=== PATIENT | male | born 2000 | race Caucasian/White ===

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

== ENCOUNTER 2019-07-30 19:10 | Emergency (ER) | payer MEDICAID ==
[~2019-07-30] VITALS: Ht 182.9 cm; Wt 77.5 kg
[2019-07-30 19:18] VITALS: BP 142/79
[2019-07-30] MEDS ORDERED: DIPH,PERTUSS(ACELL),TET VAC/PF 0.5 ML IM-VACC ONE (20:38)
[2019-07-30] MEDS ORDERED: NEOSPORIN OINT. PKT 1 PACKET ONE (20:45)
[2019-07-30] MEDS ORDERED: DIPH,PERTUSS(ACELL),TET VAC/PF NC IM-VACC ONE (21:00)
== END 2019-07-30 22:02 | disposition home or self-care (01) ==
LOC: ED 20:10
DX: S40.012A Contusion of left shoulder, initial encounter (principal); S50.312A Abrasion of left elbow, initial encounter; W18.39XA Other fall on same level, initial encounter; Y93.51 Activity, roller skating (inline) and skateboarding; Y92.488 Other paved roadways as the place of occurrence of the external cause; Y99.8 Other external cause status
CPT/HCPCS: 90471; 90715; 99284

== ENCOUNTER 2020-01-11 19:53 | Emergency (ER) | payer MEDICAID ==
[~2020-01-11] VITALS: Ht 182.9 cm; Wt 69.2 kg
[2020-01-11 19:55] VITALS: BP 113/75
[2020-01-11] MEDS ORDERED: QUET100T4 PO (20:00)
[2020-01-11] MEDS ORDERED: LAMO100T5 PO (20:00)
[2020-01-11] MEDS ORDERED: IBUPROFEN 200 MG TABLET ONE (21:29)
[2020-01-11] MEDS ORDERED: IBUPROFEN 800 MG TABLET PO ONE (21:30)
--- NOTE | 2020-01-11 22:01 | NUR ---
REPORT TO LY MARLEY.
== END 2020-01-11 22:14 | disposition home or self-care (01) ==
LOC: ED 21:40
DX: S80.02XA Contusion of left knee, initial encounter (principal); S30.811A Abrasion of abdominal wall, initial encounter; S80.211A Abrasion, right knee, initial encounter; F17.200 Nicotine dependence, unspecified, uncomplicated; W19.XXXA Unspecified fall, initial encounter; Y93.89 Activity, other specified; Y92.89 Other specified places as the place of occurrence of the external cause; Y99.8 Other external cause status
CPT/HCPCS: 99282

== ENCOUNTER 2020-03-01 17:23 | Emergency (ER) | payer MEDICAID ==
[~2020-03-01] VITALS: Ht 182.9 cm; Wt 70.0 kg
[~2020-03-01 17:23] MED LIST: LAMO100T5 PO; QUET100T4 PO
[2020-03-01 17:54] VITALS: BP 134/74
[2020-03-01] MEDS ORDERED: CARBAMIDE PEROXIDE EAR DROPS 6.5%, 15ML RIGHT EAR ONE (18:00)
--- NOTE | 2020-03-01 18:27 | NUR ---
PT AMBULATORY TO ROOM 24 W/ C/O R EAR PAIN X 3 DAYS. UPON ASSESSMENT EAR WAX NOTED TO R EAR. PT RESTING ON GURNEY. RUST
[2020-03-01] MEDS ORDERED: CARBAMIDE PEROXIDE EAR DROPS 6.5%, 15ML ONE (18:29)
--- NOTE | 2020-03-01 19:06 | NUR ---
REPORT GIVEN TO AYAKA SWANSON.
--- NOTE | 2020-03-01 19:45 | NUR ---
KEAGAN RN: PT'S EAR IRRIGATED SUCCESSFULLY. NOTIFIED. PT AO X 4. SKIN PWD. RESP EVEN AND UNLABORED. NO ACUTE DISTRESS NTOED AT THIS TIME. PT AND FAMILY AT BEDSIDE AWARE WE ARE WAITING FOR RECHECK BY ERMD. CALL LIGHT WITHIN REACH.
--- NOTE | 2020-03-01 21:51 | NUR ---
PT D/C WITH D/C SUMMARY AND SCRIPTS. ALL QUESTIONS ANSWERED. PT AMBULATES TO REGISTRATION DESK WITH STEADY GAIT FOR D/C HOME AND DENIES ANY OTHER NEEDS PERTAINING TO THIS VISIT.
== END 2020-03-01 21:53 | disposition home or self-care (01) ==
LOC: ED 17:53
DX: H61.21 Impacted cerumen, right ear (principal); H66.91 Otitis media, unspecified, right ear; F17.210 Nicotine dependence, cigarettes, uncomplicated
CPT/HCPCS: 69209; 99406

== ENCOUNTER 2020-04-05 21:49 | Emergency (ER) | payer MEDICAID ==
[~2020-04-05] VITALS: Ht 182.9 cm; Wt 68.7 kg
--- NOTE | 2020-04-05 22:28 | NUR ---
assessment made. chart up for MD to see. states burning sensation with urination. + purulent drainage.
--- NOTE | 2020-04-05 22:45 | NUR ---
urine sent to lab.
[2020-04-05 23:07] LABS: MICROSCOPIC INDICATED
[2020-04-05] MEDS ORDERED: AZITHROMYCIN 500 MG TABLET PO ONE (23:30)
[2020-04-05] MEDS ORDERED: CEFTRIAXONE 250 MG IM ONE (23:30)
[2020-04-05] MEDS ORDERED: CEFTRIAXONE 250 MG ONE (23:31)
[2020-04-05] MEDS ORDERED: AZITHROMYCIN 250 MG TABLET ONE (23:32)
[2020-04-06 00:02] VITALS: BP 119/78
--- NOTE | 2020-04-06 00:02 | NUR ---
patient discharged with instruction. verbalized understanding.
== END 2020-04-06 00:04 | disposition home or self-care (01) ==
LOC: ED 22:59
DX: A56.01 Chlamydial cystitis and urethritis (principal); A54.01 Gonococcal cystitis and urethritis, unspecified; R30.0 Dysuria; N50.812 Left testicular pain; N50.811 Right testicular pain; F17.200 Nicotine dependence, unspecified, uncomplicated
CPT/HCPCS: 81001; 87086; 87491; 87591; 96372; 99283; J0696

== ENCOUNTER 2020-09-01 21:42 | Emergency (ER) | payer MEDICAID ==
[~2020-09-01] VITALS: Ht 182.9 cm; Wt 74.2 kg
[2020-09-01 21:43] VITALS: BP 136/65
--- NOTE | 2020-09-01 21:59 | NUR ---
PT AMB TO XRAY STEADY GAIT NOTED.
== END 2020-09-01 23:22 | disposition home or self-care (01) ==
LOC: ED 22:57
DX: M53.3 Sacrococcygeal disorders, not elsewhere classified (principal); F17.210 Nicotine dependence, cigarettes, uncomplicated
CPT/HCPCS: 72220; 99283; 99406

== ENCOUNTER 2021-01-14 13:57 | Emergency (ER) | payer MEDICAID ==
[~2021-01-14] VITALS: Ht 182.9 cm; Wt 82.4 kg
[2021-01-14 14:13] VITALS: BP 117/66
[2021-01-14 14:57] LABS: BASOPHILS % (AUTO) 1 % (0-1); EOSINOPHILS % (AUTO) 0 % (1-7); LYMPHOCYTES % (AUTO) 15 % (22-44); MEAN CORPUSCULAR HEMOGLOBIN 30.5 pg (27.5-34.5); MEAN PLATELET VOLUME 7.9 fL (7.4-10.4); MONOCYTES % (AUTO) 8 % (2-9); NEUTROPHILS % (AUTO) 76 % (42-75); PLATELET COUNT 196 x10^3/uL (130-400); RED BLOOD COUNT 4.56 x10^6/uL (4.38-5.82); RED CELL DISTRIBUTION WIDTH 13.3 % (9.4-14.8)
[2021-01-14 15:15] LABS: ANION GAP 5 mmol/L (5-15); CHLORIDE 109 mmol/L (98-107)
[2021-01-14 15:16] LABS: ALANINE AMINOTRANSFERASE 27 U/L (12-78); ALBUMIN 3.5 g/dL (3.4-5.0); ALKALINE PHOSPHATASE 62 U/L (45-117); BILIRUBIN,TOTAL 0.3 mg/dL (0.2-1.0); CALCIUM 8.8 mg/dL (8.5-10.1); CREATININE 1.11 mg/dL (0.7-1.3); TOTAL PROTEIN 7.1 g/dL (6.4-8.2)
== END 2021-01-14 16:08 | disposition home or self-care (01) ==
LOC: ED 15:45
DX: R11.2 Nausea with vomiting, unspecified (principal); F41.1 Generalized anxiety disorder; F17.200 Nicotine dependence, unspecified, uncomplicated; Z88.6 Allergy status to analgesic agent
CPT/HCPCS: 36415; 80053; 83690; 85025; 99283

== ENCOUNTER 2021-01-31 18:35 | Emergency (ER) | payer MEDICAID ==
--- NOTE | 2021-01-31 19:32 | NUR ---
NIL X1 WHEN CALLED FOR TRIAGE
--- NOTE | 2021-01-31 19:43 | NUR ---
NIL X2 WHEN CALLED FOR TRIAGE
--- NOTE | 2021-01-31 19:54 | NUR ---
NIL X3 WHEN CALLED FOR TRIAGE
== END 2021-01-31 20:02 | disposition left against medical advice (07) ==
LOC: ED 18:45
DX: R05 Cough (principal); Z53.21 Procedure and treatment not carried out due to patient leaving prior to being seen by health care provider